=== PATIENT | female | born 1970 | race Caucasian/White ===

== ENCOUNTER 2018-07-08 11:30 | Inpatient (IN) | payer BC ==
[2018-07-08 12:09] VITALS: BMI 26.5
--- NOTE | 2018-07-09 15:25 | HP ---
DATE OF ADMISSION: Scheduled for surgery on 07/12/2018. HISTORY OF PRESENT ILLNESS: Ms. Schrader is a 48-year-old white female, G4, P4 with a previous Therma Choice endometrial ablation several years ago. She has been having recurrent left lower quadrant nisreen n with her light menses. This is somewhat debilitating. She was evaluated for this initially in 2017 with a Pap smear and endometrial biopsy, which were benign. She had ultrasound showing normal a dnexa with bulky uterus and a uterine fibroid that was 2 cm in the anterior area of the uterus. Her findings due to severe pain and her light menses was consistent with post-ablation syndrome. PAST SURGICAL HISTORY: Previous inguinal hernia repair, endometrial ablation of inguinal hernia and tubal ligation. PAST MEDICAL HISTORY: Otherwise negative. SOCIAL HISTORY: She is a non-smoker, minimal alcohol use. FAMILY HISTORY: Noncontributory. CURRENT MEDICATIONS: None. PHYSICAL EXAMINATION: VITAL SIGNS: Height 5 feet 3 inches, weighs 151 pounds, BMI 26.7, blood pressure 114/72, pulse regul ar at 71. HEENT: Within normal limits. CHEST: Clear to auscultation. HEART: Regular rate and rhythm. S1, S2 heart sounds. No murmurs, rubs or gallops. ABDOMEN: Soft, nontender, nondistended with no hepatosplenomegaly. No CVA tenderness. No recurrent hernias were noted. PELVIC: Vulva and vagina had no masses, no lesions. Bladder and urethra, there is no urethral disch arge or mass or bladder tenderness. Vagina had no tenderness. There is no excessive cystocele or re ctocele. Cervix was grossly normal and no cervical motion tenderness. Uterus is enlarged, 8-10 week s size and tender and bulky in character. Adnexa were nontender with no masses. ASSESSMENT: This is a 48-year-old white female G4, P4 tubal ligation with previous ThermaChoice endo metrial ablation with severe dysmenorrhea and chronic left lower quadrant pain. Uterine fibroid note d also on ultrasound and uterus having an adenomyotic appearance on ultrasound evaluation. Suspect p ost-endometrial ablation syndrome with adenomyosis. PLAN: To proceed robotic total laparoscopic hysterectomy and removal of left tube and ovary. The pa tient is aware if there is any abnormality of the right ovary encountered during the surgery, then we would proceed with an RSO also and she is in agreement. She is sent for preoperative laboratory ass essment and is scheduled for surgery on 07/12/2018.
[2018-07-12] MEDS ORDERED: Bupivacaine HCl 0.5%/Epinephrine 1:200,000/PF 30 ml Vial ONE ×2 (11:29→12:21)
[2018-07-12] MEDS ORDERED: Gabapentin 300 MG CAP ONE (12:00)
[2018-07-12] MEDS ORDERED: Famotidine/PF 20 mg/2ml Vial ONE (12:01)
[2018-07-12] MEDS ORDERED: CeleCOXIB 100 MG CAP ONE (12:02)
[2018-07-12] MEDS ORDERED: CEFAZOLIN 2 GM/50 ML BAG ONE (12:03)
[2018-07-12] MEDS ORDERED: Fentanyl 100 MCG/2 ML VIAL ONE ×3 (12:39→16:22)
[2018-07-12] MEDS ORDERED: Midazolam HCl 2 mg/2 ml Vial ONE (12:47)
[2018-07-12] MEDS ORDERED: Ondansetron HCl/PF 4 MG/2 ML Vial IVP PRN (13:30)
[2018-07-12] MEDS ORDERED: Promethazine HCl 25 MG/ML VIAL SLOW IVP PRN (13:30)
[2018-07-12] MEDS ORDERED: Promethazine HCl 25 MG/ML VIAL IM PRN ×2 (13:30→15:11)
[2018-07-12] MEDS ORDERED: ePHEDrine/0.9% NaCl/PF SYRINGE 50 mg/10 ml ONE (14:44)
[2018-07-12] MEDS ORDERED: Lidocaine 1% PF 5 ML VIAL ONE (14:44)
[2018-07-12] MEDS ORDERED: Dexamethasone 20 MG/5 ML VIAL ONE (14:44)
[2018-07-12] MEDS ORDERED: Ondansetron PF 4 MG/2 ML Vial ONE (14:44)
[2018-07-12] MEDS ORDERED: Glycopyrrolate 0.2 MG/ML 5 ML SYRINGE ONE (14:44)
[2018-07-12] MEDS ORDERED: PHENYLEPHRINE-NS 100 MCG/ML 10 ML SYRINGE ONE (14:44)
[2018-07-12] MEDS ORDERED: PROPOFOL 200 MG/20 ML VIAL ONE (14:44)
[2018-07-12] MEDS ORDERED: diphenhydrAMINE 25 MG CAP PO PRN (15:11)
[2018-07-12] MEDS ORDERED: Simethicone Chewable 80 MG TAB PO PRN (15:11)
[2018-07-12] MEDS ORDERED: Ondansetron PF 4 MG/2 ML Vial IVP PRN (15:11)
[2018-07-12] MEDS ORDERED: Bisacodyl 10 MG SUPP PR PRN (15:11)
[2018-07-12] MEDS ORDERED: Zolpidem Tartrate 5 MG TAB PO PRN (15:11)
[2018-07-12] MEDS ORDERED: Morphine 2 MG/ML SYRINGE SLOW IVP PRN (15:11)
[2018-07-12] MEDS ORDERED: traMADol HCl 50 MG TAB PO PRN ×2 (15:11)
[2018-07-12] MEDS ORDERED: Morphine 4 MG/ML VIAL ONE (16:21)
[2018-07-12] MEDS: Acetaminophen 1,000 MG in Premix Bag 1 BAG IVPB SCH ×2 (18:38→23:56)
[2018-07-12] MEDS: Ketorolac Tromethamine 30 MG/ML VIAL IVP SCH ×2 (18:39→23:55)
--- NOTE | 2018-07-12 20:51 | OP ---
DATE OF PROCEDURE: 07/12/2018 PREOPERATIVE DIAGNOSES: 1. A 48-year-old white female with previous endometrial ablation with severe dysmenorrhea and chroni c left lower quadrant pain. 2. Uterine fibroids. 3. 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 PROCEDURE PERFORMED: Robotic TLH with laparoscopic salpingo-oophorectomy of the left ovary. SURGEON: Brigette Finn M.D. FULL STACK NET DEVELOPER SURGEON: Terra Hopkins D.O. ANESTHESIA: General endotracheal. ESTIMATED BLOOD LOSS: 50 mL. COMPLICATIONS: None. COUNTS: Correct x2. PATHOLOGY: Uterus, cervix, left tube, ovary and right fallopian tube. FINDINGS: 1. Left ovary and tube with adhesions to the left sigmoid and pelvic sidewall, status post adhesioly sis and removal. 2. Uterus was approximately 8 weeks size with known intramural fibroid with some adenomyotic appeara nce. 3. Normal appearing right tube and ovary. 4. Clear urine present in Jerome catheter post-procedure and bilateral ureteral peristalsis noted pos t-procedure. DESCRIPTION OF OPERATIVE PROCEDURE: The patient previously received informed consent in regards to gaye fletcher. She was taken back to the operating room where she received a general endotracheal anestheti c agent without complications. She was placed in the dorsal lithotomy position with use of Ant sti rrups and prepped and draped in usual sterile fashion. At this time, a side-arm speculum was placed and a Jerome catheter was also placed. The anterior lip of the cervix was grasped with a single-tooth tenaculum. The uterus sounded to 8 cm. A size 6 cm KIRA uterine manipulator with first attempted a nd bulb ruptured and then we proceeded to place 8 cm KIRA uterine manipulator which worked well. A 3 .5 cm cup was then placed through the cervix. Tenaculum and speculum were removed. Then, attention was turned towards the abdominal portion of the procedure. The perspective trocar sites were infiltr ated with 0.5% Marcaine with epinephrine. A 12 mm supraumbilical incision was made. Veress needle w as entered into the peritoneal cavity and the patient pressure was noted to be less than 5 mmHg. The abdomen was insufflated to patient pressure of 15, approximately 4.5 liters of gas. Veress needle w as then removed and a 12 mm trocar was placed through the supraumbilical incision. The laparoscope w as introduced through the trocar sleeve confirming proper entry. Additional bilateral lower quadrant 8 mm trocars were placed under laparoscopic guidance along with a right upper quadrant, 11 mm assist ant port. The patient was then placed in more Trendelenburg position and the robot was docked. I pr oceeded then to carry out the surgery from the operative console and my assistants remained at the [facility]. The uterus was elevated from the pelvis and the left fallopian tube was identified. It was g rasped by my assistant customer service manager. Filmy adhesions were noted and these were taken down with monopolar scissors away from the sigmoid colon epiploic and pelvic sidewall. This also loosened filmy adhesions from t he ovary to the left pelvic sidewall. Then the left IP ligament was then identified. It was coagula susy with the monopolar scissors and transected. Serial coagulation remainder of the broad ligament, hugging close to the uterus on the left side was carried out until the left round ligament was reache d. It was coagulated and transected and the anterior leaf of the broad ligament was again entered an d vesicouterine peritoneum was then incised in layering technique with monopolar scissors, dissecting the bladder atraumatically past the cervical vaginal angle. The uterine vessels were skeletonized t o the internal cervical os region and coagulated with Bovie cautery. The right fallopian tube was then grasped with atraumatic grasper and window defects were made under the mesosalpinx of the right fallopian tube with monopolar scissors and they were coagulated. The fi mbriated end proximal to this excising the right fallopian tube and this was removed to right upper q uadrant assistant customer service manager port. The right utero-ovarian ligaments were then isolated. They were coagulated and transected. Serial coagulation of broad ligament again hugging close to uterus was carried out u ntil the right round ligament was reached. It was coagulated and transected and the anterior leaf of the broad ligament again was entered and the vesicouterine peritoneal incisions were incised under d irect visualization dissecting the bladder atraumatically past the cervical vaginal angle in junction . The right uterine vessels again were skeletonized and they were coagulated in internal cervical os region. Once this had been accomplished, the anterior colpotomy was carried out starting at the 12- 3 o'clock and 12-9 o'clock position. The uterine vessels again were coagulated with inside the colpo mushtaq site securing hemostasis. The posterior colpotomy was then completed from 6 to 3 and 6 to 9 o'c lock. The specimen was then delivered in the vaginal vault. The monopolar scissor was exchanged for Hunt needle milk wagon driver. My assistant customer service manager brought in a Stratafix in the right upper quadrant assistant customer service manager port . The Stratafix suture was then utilized to close the vaginal cuff in double layer closure starting from the right angle working our way to the left angle back towards the right angle. Hemostasis was confirmed. The pelvic pedicles again were all inspected. Hemostasis was noted. The bladder was dis tended and noted to be watertight to over 300 mL of distention and bilateral ureteral peristalsis was visualized. Pedicle sites again were noted to be hemostatic. The excess carbon dioxide gas release d from the abdomen. Trocar sleeves were removed after robot had been undocked. A deep stitch of 0 V icryl was placed in [id number] stitch fashion. The fascia overlying the supraumbilical fascial defect and remainder of the trocar sites were closed with 4-0 Monocryl and Dermabond. The vaginal cu ff was inspected with a sponge stick and hemostasis was confirmed. The patient was awakened from ane sthesia and transferred to the recovery room in stable condition.
[2018-07-12] MEDS: Lactated Ringer's 1,000 ML IV SCH (22:57)
[2018-07-13] MEDS: Lactated Ringer's 1,000 ML IV SCH ×3 (00:06→07:48)
[2018-07-13 03:50] VITALS: BP 105/58
[2018-07-13] MEDS: Ketorolac Tromethamine 30 MG/ML VIAL IVP SCH (06:02)
[2018-07-13] MEDS: Acetaminophen 1,000 MG in Premix Bag 1 BAG IVPB SCH (06:02)
[2018-07-13 06:13] LABS: Mean Corpuscular HGB CONC 33.3 g/dL (32.0-36.0); Mean Corpuscular Hemoglobin 31.3 pg (27.0-31.0); Mean Corpuscular Volume 94.1 fL (78.0-98.0); Platelet Count 176 thou/uL (130-400); Red Blood Cell (RBC) Count 3.85 mill/uL (4.20-5.40); White Blood Cell (WBC) Count 12.2 thou/uL (4.8-10.8)
[2018-07-13 09:01] VITALS: TEMP 98.2
--- NOTE | 2018-07-13 09:48 | DIS ---
DATE OF ADMISSION: 07/12/2018 DATE OF DISCHARGE: 07/13/2018 SUMMARY OF HOSPITAL COURSE: Ms. Schrader is a 48-year-old white female with previous endometrial abla tion procedure, having chronic left lower quadrant pain with severe dysmenorrhea, onset from light me nses. She also was noted to have uterine fibroids. It was felt possibly that she had post-ablation endometrial ablation syndrome due to her previous history of endometrial ablation. She underwent def initive surgical therapy with robotic total laparoscopic hysterectomy and left salpingo-oophorectomy on 07/12/2018. She did have evidence of adhesions, the left adnexa to the sigmoid colon and pelvic s idewall that was surgically removed. Postoperatively, the patient has done well. Her vital signs have remained stable. Hematocrit is 36% on postop day #1. She is ambulating, voiding, and tolerating regular diet on postop day #1. Her pa in control is adequate. She was discharged home on postop day #1 with Tramadol 50 mg q.6 hours p.r.n . pain and [id number] ibuprofen as directed. She has a followup 2 and 6 weeks postoperatively and pathology is pending at the time of this dictation.
[2018-07-17] MEDS ORDERED: Ibuprofen 800 MG TAB PO SCH (21:00)
== END 2018-07-13 09:07 | disposition home or self-care (01) | DRG 743 ==
LOC: OBSVTOIN 07-12 10:46 → SURG A 07-12 10:46 → INTOOBSV 07-12 10:46 → 3SE 07-12 16:53
PROVIDERS: ADMIT Obstetrics & Gynecology; ATTEND Obstetrics & Gynecology
PROC: 0UT9FZZ Resection of Uterus, Via Natural or Artificial Opening With Percutaneous Endoscopic Assistance (ICD-10-PCS; principal; 2018-07-12)
PROC: 0UT1FZZ Resection of Left Ovary, Via Natural or Artificial Opening With Percutaneous Endoscopic Assistance (ICD-10-PCS; 2018-07-12)
PROC: 0UT6FZZ Resection of Left Fallopian Tube, Via Natural or Artificial Opening With Percutaneous Endoscopic Assistance (ICD-10-PCS; 2018-07-12)
PROC: 8E0W4CZ Robotic Assisted Procedure of Trunk Region, Percutaneous Endoscopic Approach (ICD-10-PCS; 2018-07-12)
DX: N94.6 Dysmenorrhea, unspecified (principal); R10.2 Pelvic and perineal pain; D25.1 Intramural leiomyoma of uterus
CPT/HCPCS: 36415; 85025; 85027; 86850; 86900; 86901; 88307; 96374; J0131; J0670; J1100; J1885; J2001; J2250; J2270; J2405; J2704; J3010; Q9968; S0028

== ENCOUNTER 2018-07-08 11:38 | Outpatient (CLI) | payer BC ==
[2018-07-08 14:11] LABS: #Eosinphils 0.1 thou/uL (0.0-0.7); #Lymphocytes 1.4 thou/uL (1.20-3.40); #Monocytes 0.3 thou/uL (0.11-0.59); %Basophils 0.6 % (0.0-1.0); %Eosinophils 1.4 % (0.0-10.0); %Lymphocytes 20.9 % (21.0-51.0); %Monocytes 3.9 % (0.0-10.0); %Neutrophils 73.2 % (42.0-75.0); Hemoglobin 14.2 g/dL (12.0-16.0); Mean Corpuscular HGB CONC 32.7 g/dL (32.0-36.0); Mean Corpuscular Hemoglobin 30.6 pg (27.0-31.0); Mean Corpuscular Volume 93.8 fL (78.0-98.0); Mean Platelet Volume 10.3 fL (7.4-10.4); Platelet Count 214 thou/uL (130-400); RBC Distribution Width 11.1 % (11.5-14.5); Red Blood Cell (RBC) Count 4.64 mill/uL (4.20-5.40); White Blood Cell (WBC) Count 6.8 thou/uL (4.8-10.8)
== END 2018-07-08 11:39 | disposition home or self-care (01) ==
LOC: LABBT 11:38
PROVIDERS: ATTEND Obstetrics & Gynecology
DX: Z01.812 Encounter for preprocedural laboratory examination (principal); N94.6 Dysmenorrhea, unspecified; R10.2 Pelvic and perineal pain; D25.9 Leiomyoma of uterus, unspecified
CPT/HCPCS: 85025; 86850; 86900; 86901

== ENCOUNTER 2018-07-18 14:26 | Inpatient (IN) | payer BC ==
[~2018-07-18 14:26] MED LIST: ISOVUE-370 76%-LOCM 1 ML ONE
[2018-07-18] MEDS ORDERED: Acetaminophen 500 MG TAB ONE (14:49)
[2018-07-18 15:04] LABS: #Lymphocytes 0.4 thou/uL (1.20-3.40); #Monocytes 0.2 thou/uL (0.11-0.59); #Neutrophils 8.7 thou/uL (1.40-6.50); %Basophils 0.1 % (0.0-1.0); %Eosinophils 0.3 % (0.0-10.0); %Lymphocytes 4.5 % (21.0-51.0); %Monocytes 2.4 % (0.0-10.0); %Neutrophils 92.6 % (42.0-75.0); Hemoglobin 15.1 g/dL (12.0-16.0); Mean Corpuscular HGB CONC 33.7 g/dL (32.0-36.0); Mean Corpuscular Hemoglobin 30.6 pg (27.0-31.0); Mean Corpuscular Volume 90.9 fL (78.0-98.0); Mean Platelet Volume 9.3 fL (7.4-10.4); Platelet Count 249 thou/uL (130-400); RBC Distribution Width 11.3 % (11.5-14.5); Red Blood Cell (RBC) Count 4.94 mill/uL (4.20-5.40); White Blood Cell (WBC) Count 9.4 thou/uL (4.8-10.8)
[2018-07-18 15:24] LABS: ALT (SGPT) 40 U/L (8-55); AST (SGOT) 19 U/L (5-34); Albumin 4.3 g/dL (3.5-5.0); Alkaline Phosphatase 57 U/L (40-150); Anion Gap 15 mmol/L (10-20); BUN (Urea Nitrogen) 6 mg/dL (7.0-18.7); Bilirubin, Total 0.9 mg/dL (0.2-1.2); Calc. Creatinine Clearance 0 mL/min (70-130); Calcium 9.7 mg/dL (7.8-10.44); Carbon Dioxide 24 mmol/L (22-29); Chloride 99 mmol/L (98-107); Estimated GFR-MDRD 75; Globulin 3.3 g/dL (2.4-3.5); Glucose 114 mg/dL (70-105); Potassium 3.6 mmol/L (3.5-5.1); Protein, Total 7.6 g/dL (6.0-8.3); Sodium 134 mmol/L (136-145)
[2018-07-18 15:26] LABS: Lactate 1.21 mmol/L (0.50-2.20)
--- NOTE | 2018-07-18 15:31 | RAD ---
PORTABLE CHEST 1 VIEW: Date: 07/18/18 Time; 1448 hours HISTORY: Fever, patient had laparoscopic hysterectomy a few days ago. FINDINGS/IMPRESSION: The heart size is normal. There are bibasilar infiltrates, suspicious for pneumothorax. No pneumothor aces or large effusions seen. Follow-up exam should be obtained after a course of antibiotics. POS: [facility]
--- NOTE | 2018-07-18 15:41 | CT ---
CT ABDOMEN AND PELVIS WITH IV CONTRAST: Date: 07/18/18 HISTORY: Fever, body aches. Status post hysterectomy by Dr. Finn 6 days ago. Headache, fever, nausea, and co ugh. No urinary complaints. Patient has not had a bowel movement since the surgery. FINDINGS: There are patchy infiltrates in the lung bases. There is a small amount of free air in the peritoneal cavity and a small amount of free air in the anterior abdominal wall, consistent with recent postop changes. A tiny amount of free fluid is seen in the pelvis. The liver, spleen, pancreas, adrenal glands, and kidneys are normal. No calcified gallstones are seen . There is a fat-containing left inguinal hernia. A normal appearing appendix is present. There is a 3.2 cm cyst in the right adnexa, likely ovarian. IMPRESSION: 1. Findings are suspicious for pneumonia. 2. Air in the abdomen is most likely due to postop changes. 3. 3.2 cm right ovarian cyst. 4. Tiny amount of free fluid in the pelvis. POS: [facility]
[2018-07-18 15:42] LABS: Bilirubin Negative (Negative); Blood, Urine Trace (Negative); Clarity CLEAR (Clear); Glucose, Urine (Dipstick) Negative (Negative); Leukocyte Negative (Negative); Nitrite Negative (Negative); Protein, Urine (Dipstick) Negative (Neg-Trace)
[2018-07-18 15:44] LABS: Bacteria/HPF None Seen HPF (None Seen); Hyaline Casts/LPF 0-3 HYALINE CAST LPF (0-3 Hyaline); Pathc Cast-AUWi Flag 0.29 (0-2.49); RBC/HPF 0-3 HPF (0-3); Squamous Epithelial 0-3 HPF (0-3)
[2018-07-18 16:09] LABS: Specific Gravity, Urine 1.052 (1.002-1.036)
[2018-07-18] MEDS ORDERED: Piperacillin/Tazobactam 4.5 GM VIAL ONE (16:10)
[2018-07-18 17:35] VITALS: BMI 27.1
[2018-07-18] MEDS: Sodium Chloride 0.9% 1,000 ML IV SCH (18:38)
[2018-07-18] MEDS ORDERED: Sodium Chloride 0.9% 1,000 ML IV SCH (18:50)
[2018-07-18] MEDS ORDERED: Ondansetron PF 4 MG/2 ML Vial IVP PRN (18:50)
[2018-07-18] MEDS ORDERED: Ondansetron ODT 4 MG TAB SL PRN (18:50)
[2018-07-18] MEDS: Albuterol Sulfate 2.5 mg/3 ml Neb NEB SCH (19:11)
[2018-07-18] MEDS ORDERED: traMADol HCl 50 MG TAB PO PRN (20:46)
--- NOTE | 2018-07-18 22:27 | HP ---
DATE OF ADMISSION: 07/18/2018 HISTORY OF PRESENT ILLNESS: This is a 48-year-old white female, G4, P4, 1-week postop status post to bry abdominal hysterectomy by Dr. Finn. She presents with fever. The patient underwent an uncompl icated laparoscopic hysterectomy by Dr. Finn. She has done well. However, over the past 24 hours, she has developed fever, slight cough and feeling ill. She presented to the ER and was found to be tachycardic and felt that she needed to be admitted for bilateral pneumonia. The states that she has been quite inactive over the past week. The patient also states that it is very painful to cough, so she tries not to cough. PAST MEDICAL HISTORY: Includes ADD, history of hypothyroidism. PAST SURGICAL HISTORY: Include G4, P4, tubal ligation, hernia repair and total laparoscopic abdomina l hysterectomy. FAMILY HISTORY: Father with thyroid disease. Mother with thyroid disease. SOCIAL HISTORY: She is . She has 4 kids. She is a nonsmoker. ALLERGIES: None. REVIEW OF SYSTEMS: As above. PHYSICAL EXAMINATION: VITAL SIGNS: Temperature 98.4, blood pressure 126/84. GENERAL: In no acute distress at this time. HEENT: Clear. HEART: Regular rate and rhythm. LUNGS: With bibasilar rales. ABDOMEN: Soft, nontender, normal bowel sounds. EXTREMITIES: With no edema. IMAGING: A CT of the chest reveals bibasilar pneumonia. LABORATORY DATA: White count 9.4, H&H 15 and 44. Sodium 134, potassium 3.6, creatinine 0.82, BUN 6, blood sugar 114. Urine specific gravity 1.052. Trace ketones. ASSESSMENT: 1. Postop pneumonia from inactivity. 2. One-week postop laparoscopic hysterectomy. 3. History of hypothyroidism. 4. Attention deficit disorder. PLAN: 1. Hydrate. 2. Albuterol neb treatments q.6 hours. 3. Levaquin IV daily. 4. Hopefully, if the patient does well, she should be able to go home in the next 1-2 days.
[2018-07-18] MEDS: Ibuprofen 800 MG TAB PO PRN (22:30)
[2018-07-19] MEDS: Albuterol Sulfate 2.5 mg/3 ml Neb NEB SCH ×4 (00:54→18:51)
[2018-07-19] MEDS: Sodium Chloride 0.9% 1,000 ML IV SCH (03:34)
[2018-07-19 04:55] LABS: #Lymphocytes 0.8 thou/uL (1.20-3.40); #Monocytes 0.4 thou/uL (0.11-0.59); #Neutrophils 5.3 thou/uL (1.40-6.50); %Eosinophils 0.1 % (0.0-10.0); %Lymphocytes 11.9 % (21.0-51.0); %Monocytes 6.1 % (0.0-10.0); Hemoglobin 11.4 g/dL (12.0-16.0); Mean Corpuscular Hemoglobin 30.3 pg (27.0-31.0); Mean Corpuscular Volume 91.6 fL (78.0-98.0); Platelet Count 188 thou/uL (130-400); RBC Distribution Width 11.1 % (11.5-14.5); Red Blood Cell (RBC) Count 3.76 mill/uL (4.20-5.40); White Blood Cell (WBC) Count 6.5 thou/uL (4.8-10.8)
[2018-07-19 04:57] LABS: Anion Gap 11 mmol/L (10-20); BUN (Urea Nitrogen) 5 mg/dL (7.0-18.7); Calc. Creatinine Clearance 100 mL/min (70-130); Calcium 8.1 mg/dL (7.8-10.44); Carbon Dioxide 21 mmol/L (22-29); Chloride 108 mmol/L (98-107); Estimated GFR-MDRD 82; Glucose 112 mg/dL (70-105); Potassium 3.3 mmol/L (3.5-5.1); Sodium 137 mmol/L (136-145)
[2018-07-19] MEDS: Acetaminophen 325 MG TAB PO PRN ×2 (07:57→13:43)
--- NOTE | 2018-07-19 08:24 | PRG ---
DATE OF SERVICE: 07/19/2018 Postop day #7. SUBJECTIVE: The patient is feeling some better than yesterday. No fever or chills. She is taking f luids well. She has been ambulating in the room without difficulty. She continues to have some abdo montrell discomfort. No chest pain. No shortness of breath, occasional cough. No nausea and vomiting. OBJECTIVE: VITAL SIGNS: Temperature 98.0, T-max of 100.1, pulse of 79-90, respirations 12-16, blood pressure 95 /58, pulse ox 93% to 95% on room air. GENERAL: She is awake and alert, in no acute distress. Speech is clear. HEENT: Mucosa is moist. NECK: Supple. HEART: Regular rate and rhythm. LUNGS: Decreased breath sounds bilaterally. Some rhonchi bilaterally. No wheezes, no rales. ABDOMEN: Positive bowel sounds, bruising superficially at incision sites. No rebound, no guarding. No peritoneal signs. LABORATORY DATA AND IMAGING: White blood cell count 6500; hemoglobin and hematocrit 11.4 and 34.5, l ikely dilutional; platelets of 188. Sodium 137, potassium 3.3, chloride 108, CO2 of 21, BUN and crea tinine 5 and 0.76. Serum glucose of 112. Lactic acid was only 1.3. Chest x-ray this morning is pen ding. ASSESSMENT AND PLAN: 1. This is a 48-year-old female, status post laparoscopic hysterectomy and left salpingo-oophorectom y with postoperative pneumonitis. I will continue IV Levaquin. She is tolerating incentive spiromet ry at this time. I will continue to monitor and recheck a chest x-ray this morning. She continues t o improve clinically. We will possibly discharge home later today. If not, in the next day or two. 2. Postop laparoscopic hysterectomy. OB is following as well. 3. We will discontinue IV fluids, encourage p.o. intake as well as incentive spirometry.
--- NOTE | 2018-07-19 10:52 | RAD ---
FRONTAL RADIOGRAPH CHEST: 07/19/2018 HISTORY: Pneumonia. COMPARISON: 07/18/2018 FINDINGS: No large volume pleural effusion is seen. There are focal areas of pulmonary parenchymal opacity within the bilateral lung bases, adjacent to t he bilateral hemidiaphragms, left greater than right. These findings are stable when compared to the prior examination and suggest bibasilar infectious pneumonitis or volume loss. IMPRESSION: Stable focal areas of pulmonary parenchymal opacity within the inferior aspect of the bilateral lung bases, as detailed above. Followup to resolution advised. POS: [facility]
[2018-07-19] MEDS: Ibuprofen 800 MG TAB PO PRN ×2 (16:06→23:58)
[2018-07-19] MEDS ORDERED: diphenhydrAMINE 25 MG CAP PO PRN (16:51)
[2018-07-19] MEDS ORDERED: Azithromycin 500 MG in Sodium Chloride 0.9% 250 ML 250 ML IVPB SCH ×2 (18:00→20:00)
[2018-07-19] MEDS ORDERED: cefTRIAXone\\ROCEPHIN 1 GM in Sodium Chloride 0.9% 100 ML IVPB SCH (18:30)
[2018-07-19] MEDS ORDERED: Loratadine 10 MG TAB PO PRN (21:23)
[2018-07-19] MEDS: Docusate 100 MG CAP PO SCH (22:22)
[2018-07-20] MEDS: Albuterol Sulfate 2.5 mg/3 ml Neb NEB SCH ×2 (00:42→07:16)
[2018-07-20] MEDS ORDERED: Ondansetron PF 4 MG/2 ML Vial IVP PRN (01:32)
[2018-07-20 04:57] LABS: #Eosinphils 0.2 thou/uL (0.0-0.7); #Lymphocytes 0.6 thou/uL (1.20-3.40); #Monocytes 0.6 thou/uL (0.11-0.59); #Neutrophils 6.9 thou/uL (1.40-6.50); %Eosinophils 2.1 % (0.0-10.0); %Lymphocytes 7.3 % (21.0-51.0); %Neutrophils 83.6 % (42.0-75.0); Hemoglobin 12.1 g/dL (12.0-16.0); Mean Corpuscular HGB CONC 32.6 g/dL (32.0-36.0); Mean Corpuscular Hemoglobin 30.8 pg (27.0-31.0); Mean Corpuscular Volume 94.3 fL (78.0-98.0); Platelet Count 190 thou/uL (130-400); RBC Distribution Width 11.5 % (11.5-14.5); Red Blood Cell (RBC) Count 3.92 mill/uL (4.20-5.40); White Blood Cell (WBC) Count 8.3 thou/uL (4.8-10.8)
--- NOTE | 2018-07-20 08:50 | DIS ---
DATE OF ADMISSION: 07/18/2018 DATE OF DISCHARGE: 07/20/2018 ADMISSION DIAGNOSES: Bibasilar pneumonia, status post laparoscopic hysterectomy. DISCHARGE DIAGNOSES: Pneumonia, improved; headache; sinus infection. OTHER DIAGNOSES: ADD, hypothyroidism. CONSULTATIONS: None. PROCEDURES: IV antibiotics, chest x-ray. HOSPITAL COURSE: This is a 48-year-old female who is 1 week status post laparoscopic hysterectomy by Dr. Finn, presented to the emergency department with fever, cough, feeling ill and tachycardia. S he was found to have bibasilar infiltrates, was started on IV Levaquin, albuterol neb treatments with some improvement. She did have a reaction to the Levaquin and it was switched to Rocephin and Zithr omax. She had some improvement with her cough. She had improved chest x-ray findings. She continue d to feel badly with headache and sinus congestion. It seems consistent with a sinus infection, whic h had started about 1-2 weeks prior to her admission. She remained with normal oxygenation and was s table for discharge on the day of discharge. DISCHARGE PHYSICAL EXAMINATION: VITAL SIGNS: Temperature 98.8, T-max of 100.4, pulse of 90-98, respirations 14-18, blood pressure 10 9/67, pulse ox is 96% on room air. GENERAL: She is awake and alert, in no acute distress, appears ill but nontoxic. HEENT: Mucosa is moist. NECK: Supple. HEART: Regular rate and rhythm. LUNGS: With few rhonchi at the bases, but improved. No wheezes, no rales. ABDOMEN: With positive bowel sounds, soft, some incisional tenderness. EXTREMITIES: With no edema. DISCHARGE LABORATORY DATA: White blood cell count 8300, hemoglobin and hematocrit are 12.1 and 37.0, platelets of 190. IMAGING: Followup chest x-ray yesterday revealed findings consistent with bibasilar pneumonitis or v olume loss. DISCHARGE MEDICATIONS: Include Omnicef 300 mg b.i.d. for 7 days, Zithromax 250 once daily, albuterol p.r.n., Tylenol and Motrin p.r.n. FOLLOWUP INSTRUCTIONS: Patient to follow up in my office in 1 week.
[2018-07-20] MEDS ORDERED: guaiFENesin ER 600 MG TAB PO SCH (09:00)
[2018-07-20] MEDS: Docusate 100 MG CAP PO SCH (09:13)
[2018-07-20 09:32] VITALS: BP 105/70; TEMP 97.9
--- NOTE | 2018-07-20 14:24 | PQF ---
CLINICAL DOCUMENTATION IMPROVEMENT CLARIFICATION FORM: ICD-10 Updated PLEASE DO AN ADDENDUM TO THE PROGRESS NOTE WITH ANY DOCUMENTATION UPDATES OR ADDITIONS AND CARRY THROUGH TO DC SUMMARY. THANK YOU. DATE: 07/20 ATTN: DR. Tee VITALE Please exercise your independent, professional judgment in responding to the clarification form. Clinical indicators are provided on the bottom of this form for your review. Please check appropriate box(es): [ ] Sepsis due to: (PNA, UTI, gangrenous gall bladder, etc.) [ xx ] Localized infection without sepsis [ ] Other diagnosis [ ] Unable to determine For continuity of documentation, please document condition throughout progress notes and discharge summary. Thank You. CLINICAL INDICATORS - SIGNS / SYMPTOMS / LABS ER PRESENTATION 07/18: SEPSIS ALERT T: 101.0 HR: 109 RR: 22 TREATED W/ 2L NS, IV ZOSYN & LEVAQUIN ER PHYSICIAN DOCUMENTATION 07/18: SEPSIS, BIBASILAR PNEUMONIA RISK FACTORS: FEVER POSTOPERATIVE PNEUMONIA TREATMENTS: IVF (2L NS IN ER) IV ANTIBIOTICS (AZITHROMYCIN & ROCEPHIN 07/18 - PRESENT; ZOSYN & LEVAQUIN IN ER) THANK YOU! Nita (This form is maintained as a part of the permanent medical record) 2015 [employer]. All Rights Reserved Nita Almaguer RN, BSN [email or web address] Office: [phone] [facility]
== END 2018-07-20 09:58 | disposition home or self-care (01) | DRG 206 ==
LOC: ERS 14:26 → T4-B 16:22
PROVIDERS: ADMIT Family Medicine; ATTEND Family Medicine
DX: J95.89 Other postprocedural complications and disorders of respiratory system, not elsewhere classified (principal); F98.8 Other specified behavioral and emotional disorders with onset usually occurring in childhood and adolescence; E03.9 Hypothyroidism, unspecified
CPT/HCPCS: 36415; 71045; 74177; 80048; 80053; 81003; 81015; 83605; 84443; 85025; 87040; 87804; 90471; 90686; 94640; 96361; 96365; 96374; G0008; J0456; J0696; J1956; J2405; J2543; J7050; J7611; Q0162